=== PATIENT | female | born 1985 | race Caucasian/White ===

== ENCOUNTER 2016-12-14 07:15 | Inpatient (IN) | payer MEDICAID ==
[~2016-12-14] VITALS: Ht 188 cm; Wt 148.0 kg
--- NOTE | ~2016-12-14 | HP ---
PATIENT'S NAME: HUMBLE HERNANDEZ [facility] AGE: 31 Y [address] ROOM: [place] [address] LOCATION: [facility] ADMIT DATE: 12/14/2016 History & Physical DISCHARGE DATE: FAMILY PHYSICIAN: PHYSICIAN, NO ATTENDING PHYSICIAN: Dennis Rizvi DATE OF SERVICE: CHIEF COMPLAINT: Prior x2 and IUFD. HISTORY OF PRESENT ILLNESS: Humble Hernandez is a 31-year-old, , white female, 2, para 2, at approximately 34 weeks gestational age ([facility] 01/25/2017). The patient presents for a trial of labor. The patient has a known intrauterine demise. She has not felt the baby move for approximately 6 days. She denies bleeding, rupture of membranes, labor, or pain. She presented for assessment yesterday, at which time we confirmed an intrauterine demise. No cardiac activity. No obvious placental abnormalities. Normal amniotic fluid. Again no cardiac and extremity motion. There is some edema present about the skin on the abdomen as well as overlapping cranial features. The exact cause of demise is unknown at the present time. We discussed the findings with the patient. She was initially scheduled for an induction of labor. However, upon arrival, she states that psychologically she cannot tolerate a labor and simply wishes to proceed to delivery. Both the patient and her are adamant about abandoning the trial of labor and as such we are proceeding to a repeat low transverse section. PAST MEDICAL HISTORY: Significant for varicose vein, seasonal allergies, 2 prior sections. FAMILY HISTORY: Significant for allergic rhinitis, asthma, heart disease, hypertension, depression, breast cancer, renal disease. SOCIAL HISTORY: The patient is , 's name is Can Hernandez. No alcohol consumption. She does smoke on a regular basis, has been doing since age 18. PHYSICAL EXAMINATION: GENERAL: Well-developed, well-nourished, white female, appears stated age, in no apparent distress. Alert and oriented x3. HEENT: Grossly normal. LUNGS: Clear to auscultation. PATIENT'S NAME: HUMBLE HERNANDEZ [facility] AGE: 31 Y [address] ROOM: [place] [address] LOCATION: [facility] ADMIT DATE: 12/14/2016 History & Physical DISCHARGE DATE: FAMILY PHYSICIAN: PHYSICIAN, LYNDON ATTENDING PHYSICIAN: Dennis Rizvi HEART: Regular rate and rhythm. ABDOMEN: Gravid. IMPRESSION: A 31-year-old female at 34 weeks gestational age with a known intrauterine demise, 2 prior sections. The patient psychologically does not feel like she can tolerate a trial of labor. Rather than adding to her distress, we will proceed to a delivery. The patient understands the complication of the procedures, risks, and alternatives. She also understands the risks to include bleeding that may require transfusions, infections that may require IV antibiotics, prolonged hospitalization, possible damage to internal organs, may require additional surgical correction, and the risks of anesthesia. All questions were answered to the patient's satisfaction and informed consent was obtained. MD REUBEN SHEPARD/tatal /[id number] D: T: HISTORY & PHYSICAL
--- NOTE | ~2016-12-14 | OR ---
PATIENT'S NAME: HUMBLE IRWIN [facility] AGE: 31 Y [address] ROOM: [place] [address] LOCATION: [facility] ADMIT DATE: 12/14/2016 OR/Procedure Report DISCHARGE DATE: FAMILY PHYSICIAN: PHYSICIAN, NO ATTENDING PHYSICIAN: Heather Rizvi SURGEON: Heather Rizvi MD MANAGER SOLUTION: Dr. Gisella Zuñiga. Dr. Zuñiga's assistance was required due to the complexity of the case as well as in compliance with [facility] guidelines. DATE OF PROCEDURE: 12/14/2016 PREOPERATIVE DIAGNOSES: 1. 34-week intrauterine . 2. Intrauterine demise. 3. Prior section x2. POSTOPERATIVE DIAGNOSES: 1. 34-week intrauterine . 2. Intrauterine demise. 3. Prior section x2. PROCEDURE: Repeat low transverse section. ANESTHESIA: Spinal. ESTIMATED BLOOD LOSS: 200 mL. CLINICAL INDICATION: Humble Irwin is a 31-year-old, , white female, 3, para 2, at 34 weeks gestational age. She did present to the office yesterday with a complaint of absent movement for 4 to 5 days. Upon arrival heart tones were not audible. Ultrasound confirmed demise. No identifiable cause on ultrasound. Normal fluid. No evidence of placental abruption. Edema about the skin as well as overlapping cranial suture. The patient was admitted today for an induction labor. However, she declined the induction labor stating that psychologically she could not tolerate the labor and wished to proceed directly to a repeat section. She understood the indications, procedures, risks, and alternatives. FINDINGS: Delivery of a nonviable 4 pounds 16 ounces male , score 0 at 1 minute, 0 at 5 minutes. The amniotic fluid had a brownish discoloration not entirely consistent with meconium. There was no evidence of a placental abruption. No evidence of umbilical cord entanglement. No nuchal cord. No true knot. Placenta did not have a large amount of calcifications or advanced features and again no evidence of an abruption. No identifiable PATIENT'S NAME: HUMBLE IRWIN [facility] AGE: 31 Y [address] ROOM: [place] [address] LOCATION: [facility] ADMIT DATE: 12/14/2016 OR/Procedure Report DISCHARGE DATE: FAMILY PHYSICIAN: PHYSICIAN, NO ATTENDING PHYSICIAN: Heather Rizvi cause for the demise at the present time. Fetus had changes consistent with postmortem changes. TECHNICAL PROCEDURE: The patient was taken to the operating room, given spinal anesthesia with good results, placed in a supine position with right hip roll. Prepped and draped in usual fashion. Pfannenstiel scar was excised sharply. Subcutaneous tissue was dissected sharply. Fascial incision was performed sharply. Linea alba was dissected free of the rectus muscles using a combination of sharp and blunt dissection. Rectus muscles split sharply in the midline. Peritoneum was incised sharply in the midline. Bladder flap was created. Myometrium was incised with a scalpel. The endometrial cavity was entered bluntly. At this point in time, the amniotomy was performed revealing a slight brownish discoloration to the amniotic fluid. Normal amount of amniotic fluid was noted. The incision was extended using blunt dissection. At this point in time, the fetus initially was delivered in a tamela breech presentation. The umbilical cord was doubly clamped and the intervening segments were cut. was handed off to the awaiting nursing staff. We attempted to retrieve cord blood, however, it was congealed to the point that it precluded any aspiration. The placenta was delivered spontaneously intact with 3 vessels. Again, no evidence of placental abruption. The uterine cavity was inspected, any residual placental or fragments of membranes were retrieved. The uterine incision was closed with a running continually locking stitch of 0 chromic suture followed by a second imbricating layer consisting of running continuous stitch of 0 chromic suture. Good hemostasis was obtained. Bladder flap was closed with running continuous stitch of 2-0 Vicryl suture. The abdomen was inspected, any blood or blood clots were retrieved. Tubes and ovaries were normal bilaterally. Abdominal peritoneum was closed with running continuous stitch of 2-0 Vicryl suture. Fascial incision was closed with 2 running continuous stitches of 0 Vicryl suture tied in the midline. Subcutaneous tissue was reapproximated using running continuous stitch of 2-0 Vicryl suture. Skin was closed with a running continuous subcuticular stitch of 4-0 Vicryl suture. Sponge, needle, and instrument counts were correct. The patient tolerated the procedure well and was taken to the recovery room in good condition. HEATHER MD REUBEN RIZVI/john /[id number] d: 12/14/16 1541 t: 12/16/16 1045, OPERATIVE SUMMARY
[~2016-12-14 07:15] MED LIST: MOTRIN800 MG PO; PERCOCET 5-3251 EACH PO; PRENATAL 1+1)(P1 TAB PO; TUMS200 MG PO; ZANTAC (NON-FO150 MG PO
[2016-12-14 08:26] LABS: BASOPHIL % 0.2 %; EOSINOPHIL # 0.3 K/uL (0.0-0.5); HEMATOCRIT 34.8 % (33.0-46.0); HEMOGLOBIN 11.5 g/dL (11.0-15.0); IMMATURE GRANULOCYTE % 0.5 %; LYMPHOCYTE # 2.5 K/uL (0.8-4.0); LYMPHOCYTE % 29.3 %; MCH 29.3 pg (27.0-34.0); MCV 88.8 fl (83.0-98.0); MONOCYTE # 0.8 K/uL (0.0-1.0); MONOCYTE % 9.3 %; MPV 10.1 fl (9.4-12.4); NEUTROPHIL % 57.7 %; NRBC % 0 /100WBC (0-0.00); PLATELET COUNT 290 K/uL (150-450); RBC 3.92 M/uL (3.50-5.00); RDW-CV 13.9 % (11.9-14.6); WBC 8.6 K/uL (4.0-11.0)
[2016-12-14] MEDS ORDERED: FEOSOL325 MG PO (08:35)
[2016-12-15 04:57] LABS: BASOPHIL % 0.1 %; EOSINOPHIL # 0.1 K/uL (0.0-0.5); EOSINOPHIL % 1.1 %; HEMATOCRIT 30.8 % (33.0-46.0); HEMOGLOBIN 10.2 g/dL (11.0-15.0); IMMATURE GRANULOCYTE % 0.3 %; LYMPHOCYTE # 3.1 K/uL (0.8-4.0); LYMPHOCYTE % 26.3 %; MCH 29.5 pg (27.0-34.0); MCHC 33.1 gm/dL (32.0-36.5); MONOCYTE % 8.3 %; MPV 10.4 fl (9.4-12.4); NEUTROPHIL # (ANC) 7.5 K/uL (1.8-7.8); NEUTROPHIL % 63.9 %; NRBC % 0 /100WBC (0-0.00); PLATELET COUNT 262 K/uL (150-450); RBC 3.46 M/uL (3.50-5.00); RDW-CV 13.6 % (11.9-14.6); WBC 11.7 K/uL (4.0-11.0)
--- NOTE | 2016-12-15 05:59 | NUR ---
Significant Event:vss. percocet last given at 0300 with relief. plans on home today Follow up:
[2016-12-15] MEDS ORDERED: MOTRIN800 MG PO (09:27)
[2016-12-15] MEDS ORDERED: PERCOCET 5-3251 EACH PO (09:28)
== END 2016-12-15 09:45 | disposition disaster alternative care site (69) | DRG 766 ==
LOC: GOBS 07:15
PROVIDERS: ADMIT Obstetrics & Gynecology
DX: O36.4XX0 Maternal care for intrauterine death, not applicable or unspecified (principal); N85.8 Other specified noninflammatory disorders of uterus; Z3A.34 34 weeks gestation of pregnancy; Z37.1 Single stillbirth; O34.219 Maternal care for unspecified type scar from previous cesarean delivery
CPT/HCPCS: J1885; J1956; J2001; J2590; J7120

== ENCOUNTER 2016-12-23 01:18 | Emergency (ER) | payer MEDICAID ==
--- NOTE | ~2016-12-23 | ENPV ---
Vascular Lower Extremities DVT Study Procedure Demographics Patient Name HUMBLE HERNANDEZ Date of Study 12/23/2016 Patient Number [id number] Gender Female Date of 1985 Age 31 Visit Number [id number] Height Accession Number [id number] Weight Room Number BSA BMI Referring Heidi Yuan MD Interpreting Melo Figueroa MD Physician Physician Physician Ordering Physician Heidi Yuan [employer] Worker Medical Billing Clerk Vikas Quinn RVT Conclusions Summary No evidence of deep vein thrombosis in bilateral lower extremities. Acute occlusive superficial thrombus in multiple proximal and mid calf varicosities that originate from the proximal calf greater saphenous vein. The left greater saphenous vein is patent. Procedure Type of Study: Veins:Lower Extremities DVT Study, Venous Duplex Lower Extremity Bilateral. Indications for Study:Bilateral lower extremity edema. Additional Indications:Bilateral lower extremity pain Patient Status:Routine. Study Location:[facility] Center. Technical Quality:Adequate visualization. Contrast Medium Amount:9 ml. - Preliminary reported to: in the ED. Velocities are measured in cm/s ; Diameters are measured in cm Right Lower Extremities DVT Study Measurements Right 2D and Doppler Measurements + + + + +------+------+ + !Location !Visualized!Compressibility!Thrombosis!Signal!Reflux!Reflux ! ! ! ! ! ! ! !(sec) ! + + + + +------+------+ + !GSV Thigh !Yes !Yes !None !Phasic!No ! ! + + + + +------+------+ + !Common !Yes !Yes !None !Phasic!No ! ! !Femoral ! ! ! ! ! ! ! + + + + +------+------+ + !Prox !Yes !Yes !None !Phasic!No ! ! !Femoral ! ! ! ! ! ! ! + + + + +------+------+ + !Mid Femoral!Yes !Yes !None !Phasic!No ! ! + + + + +------+------+ + !Dist !Yes !Yes !None !Phasic!No ! ! !Femoral ! ! ! ! ! ! ! + + + + +------+------+ + !Popliteal !Yes !Yes !None !Phasic!No ! ! + + + + +------+------+ + !Gastroc !Yes !Yes !None !Phasic! ! ! + + + + +------+------+ + !PTV !Yes !Yes !None !Phasic! ! ! + + + + +------+------+ + !Peroneal !Yes !Yes !None !Phasic! ! ! + + + + +------+------+ + Left Lower Extremities DVT Study Measurements Left 2D and Doppler Measurements + + + + +------+------+ + !Location !Visualized!Compressibility!Thrombosis!Signal!Reflux!Reflux ! ! ! ! ! ! ! !(sec) ! + + + + +------+------+ + !GSV Thigh !Yes !Yes !None !Phasic!No ! ! + + + + +------+------+ + !Common !Yes !Yes !None !Phasic!No ! ! !Femoral ! ! ! ! ! ! ! + + + + +------+------+ + !Prox !Yes !Yes !None !Phasic!No ! ! !Femoral ! ! ! ! ! ! ! + + + + +------+------+ + !Mid Femoral!Yes !Yes !None !Phasic!No ! ! + + + + +------+------+ + !Dist !Yes !Yes !None !Phasic!No ! ! !Femoral ! ! ! ! ! ! ! + + + + +------+------+ + !Popliteal !Yes !Yes !None !Phasic!No ! ! + + + + +------+------+ + !Gastroc !Yes !Yes !None ! ! ! ! + + + + +------+------+ + !PTV !Yes !Yes !None ! ! ! ! + + + + +------+------+ + !Peroneal !Yes !Yes !None ! ! ! ! + + + + +------+------+ + Signature dtt: SOWMYA GRANT: 12/23/16 0200 Physician Evaristo Daniel
--- NOTE | ~2016-12-23 | ER ---
PATIENT'S NAME: HUMBLE HERNANDEZ [facility] AGE: 31 Y [address] ROOM: [place] [address] LOCATION: [facility] ADMIT DATE: 12/23/2016 ER/Outpatient Report DISCHARGE DATE: 12/23/2016 FAMILY PHYSICIAN: PHYSICIAN, NO ATTENDING PHYSICIAN: Jony Gordon Admission date and time are documented in the medical record. I saw the patient at 0145 hours. CHIEF COMPLAINT: Lower leg swelling, redness, and pain. HISTORY OF PRESENT ILLNESS: The patient is a 31-year-old female who over the past 12 hours has had areas in her left lower leg and her right lower leg that had been painful, swollen, and red. No red streaking. The patient had a about a week ago. No chest pain or shortness of breath. No headache, eyes, ears, nose, throat, neck, or spine pain. No recent coughs, colds, flus, fever, chills, or sweats. No abdominal pain, nausea, vomiting, diarrhea, or urinary complaints. No neuro changes, psych issues, or endocrine problems. HOME MEDICATIONS: Ibuprofen. ALLERGIES: PENICILLIN. SOCIAL HISTORY: The patient smokes a half to a pack of cigarettes per day and nondrinker. SIGNIFICANT PAST MEDICAL HISTORY: Negative except for tobacco abuse. OPERATIONS: x3. REVIEW OF SYSTEMS: All systems reviewed by me are negative with the exception of those discussed in the history of present illness. PHYSICAL EXAMINATION: VITAL SIGNS: Temperature 97.3, tympanic, pulse 75, respirations 18, blood pressure 196/107, and O2 sat on room air is 99%. HEENT: Negative. LUNGS: Clear. PATIENT'S NAME: HUMBLE HERNANDEZ [facility] AGE: 31 Y [address] ROOM: [place] [address] LOCATION: [facility] ADMIT DATE: 12/23/2016 ER/Outpatient Report DISCHARGE DATE: 12/23/2016 FAMILY PHYSICIAN: PHYSICIAN, NO ATTENDING PHYSICIAN: Jony Gordon HEART: Regular. ABDOMEN: Soft, nontender. Good bowel tones. EXTREMITIES: The patient has what looks like some redness and tenderness with clots in the varicose veins especially of the left lower leg. NEUROVASCULAR: Intact. LABORATORY DATA: I did do venous Doppler study of both legs that showed no evidence of DVT. I did have some superficial thrombophlebitis in her varicosities. See Radiology report. IMPRESSION: Superficial thrombophlebitis, lower legs bilaterally, left greater than right. PLAN: The patient dismissed home. Observation. Activity as tolerated. Elevation of legs intermittently as needed. Warm packs to legs intermittently as needed. Naprosyn 500 mg 1 orally b.i.d. with food x10 days, #20. Follow up with personal physician in 7 to 10 days or sooner if needed. Discussion ensued with the patient concerning my findings and recommendations, she understands. MD ALLY VIDES/modl /[id number] d: 12/23/16 0341 t: 12/23/16 1809, OUTPATIENT REPORT
[~2016-12-23 01:18] MED LIST changes: +FEOSOL325 MG PO
== END 2016-12-23 03:00 | disposition disaster alternative care site (69) ==
LOC: GMED 01:18
DX: O87.0 Superficial thrombophlebitis in the puerperium (principal); O99.335 Smoking (tobacco) complicating the puerperium; F17.210 Nicotine dependence, cigarettes, uncomplicated; Z98.890 Other specified postprocedural states; Z88.0 Allergy status to penicillin; Z79.1 Long term (current) use of non-steroidal anti-inflammatories (NSAID)